=== PATIENT | male | born 1975 | race Caucasian/White ===

== ENCOUNTER 2024-09-15 12:52 | Emergency (ER) | payer BC, SELFPAY ==
--- OUTSIDE RECORDS SUMMARY | 2024-07-29 14:45 | XMS_ITS | Encounter Summary ---
Author Organization [facility] [place] [address] Care Team Providers Care Aviation Maintenance Instructor Name Role Phone Bret Corrales MD Primary Care Provider [phone] Joselo Canela MD Unavailable [phone] Reason for Referral * Biopsy Procedure (Routine) - Closed Specialty Diagnoses / Procedures Referred By Kelly cho Referred To Contact Diagnoses AK (actinic keratosis) Procedures WA DESTRUCTION PREMALIGNANT LESION 2-14 Lacey Jaramillo MD [address] [place] [address] Phone: tel: fax: Referral ID Status Reason Start Date Expiration Date Visits Re quested Visits Authorized [id number] Closed 07/29/2024 07/29/2025 1 1 * Biopsy Procedure (Routine) - Authorization Not Needed Specialty Diagnoses / Procedures Referred By Contreji t Referred To Contact Dermatology Diagnoses AK (actinic keratosis) Procedures WA DESTRUCTION PREMALIGNANT LESION 1ST WA DESTRUCTION PREMALIGNANT LESION 2-14 Lacey Jaramillo MD [address] [place] [address] Phone: tel: fax: Lacey Salamanca MD [address] [place] [address] Phone: tel: fax: Referral ID Status Reason Start Date Expiration Date Visits Requested Visits Authorized [id number] Authorization Not Needed 07/29/2024 07/29/2025 1 1 Reason for Visit * Reason Comments Follow-up * Biopsy Procedure (Routine) - Authorization Not Needed Specialty Diagnoses / Procedures Referred By Kelly cho Referred To Contact Dermatology Diagnoses AK (actinic keratosis) Procedures WA DESTRUCTION PREMALIGNANT LESION 1ST WA DESTRUCTION PREMALIGNANT LESION 2-14 EA Lacey Salamanca MD [address] [place] [address] Phone: tel: fax: Lacey Salamanca MD [address] [place] [address] Phone: tel: fax: Referral ID Status Reason Start Date Expiration Date Visits Requested Visits Authorized [id number] Authorization Not Needed 07/29/2024 07/29/2025 1 1 Encounter Details Date Type Department Care Team (Late st Contact Info) Description 07/29/2024 2:45 PM EDT Office Visit [facility] Dermatology [facility] [address] [facility] [address] [place] [address] Lacey Salamanca MD [address] [place] [address] Multiple benign melanocytic nevi (Primary Dx); AK (actinic keratosis); Actinic skin damage; History of nonmelanoma skin cancer; Lentigines; SK (seborrheic keratosis); Ramey angioma; Diffuse photodamage of skin; Screening for skin cancer Social History Tobacco Use Types Packs/Day Years Used Date Smoking Tobacco: Never Smokeless Tobacco: Former Chew Quit: 01/08/2023 Alcohol Use Standard Drinks/Week Comments Yes 0 (1 standard drink = 0.6 oz pur e alcohol) social PHQ-2 Answer Date Recorded PHQ-2 Total Score 0 06/10/2024 Sexually Active Control Partners Comments Yes Sex and Gender Information Value Date Recorded Sex Assigned at Not on file Legal Sex Male 3:02 PM EDT Gender Identity Not on file Sexual Orientation Not on file documented as of this encounter Functional Status * Is the person deaf or does he/she have serious difficulty hearing? Answer Date of Assessment Author No 06/10/2024 11:22 AM Angelina Santoro CCMA * Is the person blind or does he/she have serious difficulty seeing even when wearing glasses? Answer Date of Assessment Author No 06/10/2024 11:22 AM Angelina Santoro CCMA * Does this person have serious difficulty walking or climbing stairs? Answer Date of Assessment Author No 06/10/2024 11:22 AM Angelina Santoro CCMA * Does this person have difficulty dressing or bathing? Answer Date of Assessment Author No 06/10/2024 11:22 AM Angelina Santoro CCMA * Because of a physical, mental or emotional condition, does this person have difficulty doing errands alone such as visiting a doctor's office or shopping? Answer Date of Assessment Author No 06/10/2024 11:22 AM Angelina Santoro CCMA documented as of this encounter Mental Status * Because of a physical, mental or emotional condition, does this person have serious difficulty concentrating, remembering or making decisions? Answer Entry Date Author Yes 06/10/2024 11:22 AM Angelina Santoro CCMA documented in this encounter Progress Notes * Lacey Salamanca MD - 07/29/2024 2:45 PM EDT Chief Complaint: Chief Complaint Patient presents with ??? Follow-up History of Present Illness: Fernando Galloway is a 48 y.o. male who presents for - Requests skin check. Patient notes personal hx of skin cancer. Patient has not noted any other new, changing, symptomatic (itching, painful, bleeding) or problematic skin lesions and has practiced appropriate sun avoidance, sun screen use, and sun protective behaviors. Patient denies any other complaints or concerns. Dermatology history: Personal history of NMSC / melanoma - yes - BCC left pre auricular cheek s/p excision 04/16/20 - SCC right dorsal hand, biopsy 07/19/20 -- planned for excision October 15, ultimately declined Review of Systems: No other reported skin problems. Constitutional: no reported F/C Eyes: no reported dry eyes/Sjogren's Ears/Nose/mouth/throat: no reported oral sores, no reported dry mouth C/V: no reported chest pain Resp: no reported SOB, no reported pleurisy GI: no reported abd pain, no reported N/V : no reported pain with urination, no reported blood in urine M/S: no reported joint complaints, no reported arthralgias, no reported muscle weakness, no reported trouble brushing hair/standing up from seated position Neuro: no reported seizures, no reported PA's Psych: no reported change in mood Endo: no reported weight gain/loss Heme/lymph: no reported easy bruising, no reported swollen glands/lymph nodes. No reported hx of clotting. Allergic/Immunologic: no reported symptoms of allergy No reported Raynaud symptoms ? Medical History: Patient Active Problem List Diagnosis ??? Mood disorder ??? Knee strain, right, initial encounter ??? Right knee pain ??? Chondromalacia of right patella ??? Complex tear of medial meniscus of right knee as current injury ??? Complex tear of lateral meniscus of right knee as current injury ??? Traumatic complete tear of right rotator cuff ??? Superior glenoid labrum lesion of right shoulder ??? Biceps tendinitis of right upper extremity ??? Osteoarthritis of AC (acromioclavicular) joint ??? Subacromial bursitis of right shoulder joint ??? S/P right rotator cuff repair ??? Biceps tendonosis of right shoulder ??? Acholic stool ??? Dysphagia Medications: Current Outpatient Medications on File Prior to Visit Medication Sig Dispense Refill ??? methylPREDNISolone (MEDROL DOSPACK) 4 mg Oral Tablets, Dose Pack See package instructions (Patient not taking: Reported on 07/29/2024) 21 Tablet 0 No current facility-administered medications on file prior to visit. Allergies: No Known Allergies Family History: Family History Problem Relation Age of Onset ??? High Blood Pressure Mother ??? Cancer Mother ??? Diabetes Father ??? Anesth Problems Neg Hx Social History: Social History Socioeconomic History ??? Marital status: Spouse name: Not on file ??? Number of children: Not on file ??? Years of education: Not on file ??? Highest education level: Not on file Occupational History ??? Not on file Tobacco Use ??? Smoking status: Never ??? Smokeless tobacco: Former Types: Chew Quit date: 01/08/2023 Vaping Use ??? Vaping status: Never Used Substance and Sexual Activity ??? Alcohol use: Yes Comment: social ??? Drug use: No ??? Sexual activity: Yes Other Topics Concern ??? Not on file Social History Narrative ??? Not on file Social Drivers of Health Financial Resource Strain: Not on file Food Insecurity: Not on file Transportation Needs: Not on file Physical Activity: Not on file Stress: Not on file Social Connections: Not on file Intimate Partner Violence: Not on file Housing Stability: Not on file Exam/Assessment/Plan: Carmel Navarro MA present in room Well-appearing patient in no apparent distress. Alert and oriented x 3. Mood and affect within normal limits. A full skin examination was performed including scalp, head, eyes, ears, nose, lips, neck, chest, axillae, abdomen, back, bilateral upper extremities, hands, fingers, fingernails, buttocks, bilaterallower extremities, feet, toes, and toenails. There were no vitals taken for this visit. Multiple benign melanocytic nevi Exam: Brown, regular macules and papules with no concerning dermoscopic features on the face, trunk, and extremities No atypical features by clinical exam or dermoscopy. Reassured, appear benign on exam today. Discussed ABCDEs and monthly self skin exams. Discussed daily sun protection with SPF 30, hats, clothing, etc. I recommend over the counter broad spectrum sunscreen SPF 30 or higher. Reapply every 2 hours when outdoors. Return to clinic promptly for new or changing lesions. Actinic keratosis Actinic skin damage Exam: Erythematous scaly thin papules on the scalp x 3, L zoroastrianism x 1, L cheek x 1 Pre-malignant nature discussed with patient; also discussed there is possible risk of malignant transformation of these lesions. Discussed treatment recommended given pre-malignant nature. Discussed treatment options, including liquid nitrogen cryotherapy, topical 5-FU BID for 2 weeks, and 5-FU + Ca lcipotriene BID for 4 days if on face/scalp and 7 days if on arms, PDT. Risks of scarring, hyper/hypo-pigmentation also discussed. Patient elects to proceed with cryotherapy Site(s): scalp x 3, L zoroastrianism x 1, L cheek x 1 Procedure: Cryotherapy. Number of Lesions: 5 The lesion(s) was/were treated with liquid nitrogen x2 cycles each after verbal consent was obtained from the patient who understands that the risks include but are not limited to pain, post-inflammatory pigment changes, swelling, blister, infection, recurrence, possible need for further treatment,and scarring. Wound care instructions were provided. -The patient was advised regarding the use of sunscreens and sun protection strategies (e.g. wide brimmed hats, photo-protective clothing, avoidance of outdoor exposure between 10 AM and 4 PM). I recommend over the counter broad spectrum sunscreen SPF 30 or higher. Reapply every 2 hours when outdoors. Informed patient to return to clinic promptly for re-evaluation if no improvement, changes in size, changes in pigmentation, etc occur. Patient expressed understanding and agrees with plan History of nonmelanoma skin cancer Exam: Well-healed scar without nodularity or pigmentation or evidence of recurrence on prior sites - No evidence of recurrent disease on examination today - Reinforced photoprotective strategies including sunscreen use SPF 30 or higher, use of protectiveclothing, and sun avoidance for prevention of cutaneous malignancy and photoaging. - Counseled patient on the importance of regular self-monitoring as well as clinical skin examinations as scheduled. - The patient was also advised to call for an appointment sooner should any new, changing, or symptomatic lesions develop in the interim. Lentigines Exam: Photodistributed, knight, feathery macules on the face, trunk, and extremities Benign nature of diagnosis discussed with patient, re-assurance provided. Monitoring for changes recommended. - The patient was instructed to continue sun protection with sunscreen and protective clothing. Thepatient will apply a sunscreen with sun protection factor of at least 30 on a regular basis to exposed areas. The patient was requested to continue self examination on a regular basis. Informed patient to return to clinic promptly for re-evaluation if changes occur. Seborrheic keratoses Exam: Knight, waxy, stuck-on papules on the face, trunk, and extremities Benign nature of diagnosis discussed with patient, re-assurance provided. Monitoring for changes recommended. Informed patient to return to clinic promptly for re-evaluation if changes occur. Ramey angioma Exam: Dome shaped round red vascular papules on the face, trunk, and extremities Benign nature of diagnosis discussed with patient, re-assurance provided. Monitoring for changes recommended. Informed patient to return to clinic promptly for re-evaluation if changes occur. Diffuse photodamage Exam: Diffuse solar elastosis with rhytids and mild hypo/hyperpigmentation The patient was instructed to continue sun protection with sunscreen and protective clothing. The patient will apply a sunscreen with sun protection factor of at least 30 on a regular basis to exposed areas. The patient was requested to continue self examination on a regular basis. If the lesions change in size or shape these lesions should be evaluated in the clinic. Screening for skin cancer The patient was instructed to continue sun protection with sunscreen and protective clothing. The patient will apply a sunscreen with sun protection factor of at least 30 on a regular basis to exposed areas. I recommend over the counter broad spectrum sunscreen SPF 30 or higher. Reapply every 2 hours when outdoors. The patient was requested to continue self examination on a regular basis. Follow Up: Return in 1 year (on 07/29/2025) for FBSE. . Strict return precautions discussed. Patient understands to contact us with any interim concerns. Patient understands to contact us immediately with any changes in medical history (e.g females advised to inform clinic if trying to conceive, , or ) as this may impact medications, follow up, etc. Patient expressed understanding. ???I have reviewed this note and made changes to it as appropriate. It accurately reflects my work and decisions made during this visit.?? Lacey Salamanca M.D. documented in this encounter Miscellaneous Notes * Patient Instructions - UdLacey carcamo MD - 07/29/2024 2:45 PM EDT Images from the original note were not included. If you had a biopsy today, I recommend the following for wound care: I recommend leaving the bandage in place and avoiding showering/baths for 24 hours. Thereafter, recommend washing sites with water and soap daily and applying vaseline liberally (at least once daily)to optimize healing. We recommend AGAINST topical antibiotics like neosporin and triple antibiotic,as these can cause skin allergy and rash, which makes healing more difficult. We will call you withthe results. If you had spots frozen (treated with cryotherapy) today, I recommend daily application of vaselineto areas to help the healing process. Strongly recommend photoprotection; specifically recommend: - stay out of sun, particularly from 10 am to 4 pm - broad spectrum sunscreen with SPF30 or above (look for sunscreens with zinc oxide, titanium dioxide in them) - adults: apply 2 tablespoons to entire body to ensure thick enough layer When outside for prolonged periods, re-apply sunscreen every 2-3 hours Specific sunscreens that we love: Neutrogena Pure and Free Baby, Cerave or Vanicream sunscreens, EltaCaptora (can order this on [facility]) - broad-rimmed hat [employer] has hats with UPF (the clothing sun protection factor) - protective clothing (clothing with UV protection factor, also called UPF) [employer] is one great option; [employer] also makes UPF clothing Recommend that you perform monthly skin exams, with special attention to the ABCDEs (as illustratedbelow; reproduced from the [employer]), and, if you have a history of skin cancer(particularly melanoma), we recommend that you palpate your scars from prior melanoma excision oncemonthly. Please call us and let us know if you notice any new or changing lesions or if you feel any new bumps within scars from prior skin cancer surgeries (we will get you in to have lesions evaluated further). A - Asymmetrical shape - One half of the lesion does not match the other half. B - Border -- The edges are ragged, notched, irregular, or blurred C- Color - The color is not the same throughout or it has shades of knight, brown, black, red, white, or blue. D - Diameter - The mole is greater than 6 millimeters in size, about the size of a pencil eraser. E - Evolving - lesions that are changing should be examined Please give us a call if you notice any new or changing lesions. documented in this encounter Plan of Treatment Scheduled Orders Name Type Priority Associated Diagnoses Orde r Schedule WA DESTRUCTION PREMALIGNANT LESION 1ST WA Charge Routine AK (actinic keratosis) Ordered: 07/29/2024 WA DESTRUCTION PREMALIGNANT LESION 2-14 EA WA Charge Routine AK (actinic keratosis) Ordered: 07/29/2024 documented as of this encounter Goals Goal Patient Goal Type Associated Problems Recent Progress Patient-Stated? Author Maintain a healthy diet, exercise regularly and maintain an ideal body weight General No Cecille Jo RMA Stay Tobacco Free Lifestyle No Cecille Jo RMA documented as of this encounter Visit Diagnoses Diagnosis Multiple benign melanocytic nevi- Primary AK (actinic keratosis) Actinic keratosis Actinic skin damage Other chronic dermatitis due to solar radiation History of nonmelanoma skin cancer Personal history of other malignant neoplasm of skin Lentigines Other dyschromia SK (seborrheic keratosis) Other seborrheic keratosis Ramey angioma Nevus, non-neoplastic Diffuse photodamage of skin Other chronic dermatitis due to solar radiation Screening for skin cancer Screening for malignant neoplasm of the skin documented in this encounter Care Teams Aviation Maintenance Instructor Relationship Specialty [place] [id number] [place] [address] PCP - General 12/25/09 Joselo Canela MD [address] [address] Physician Allergy & Immunology 07/14/23 documented as of this encounter
[2024-09-15 12:59] VITALS: BP 144/90; PULSE 80; RESP 16; TEMP 36.6; O2SAT 98; BMI 30.8
[2024-09-15 13:01] VITALS: PULSE 68; O2SAT 97
--- NOTE | 2024-09-15 13:06 | ED_ITS ---
Discharge Plan Disposition Patient Disposition: Home, Self-Care Referrals Follow up/Referrals: Bret Corrales MD [Primary Care Provider, Internal Medicine] - See instructions Activity Restrictions/Add. Instructions Additional Instructions/Restrictions: Today you were evaluated in the emergency department and diagnosed with a corneal abrasion of your left eye. Please use the erythromycin ointment that you were provided. You will apply this 3 times a day to your left eye. Please follow-up within 48 hours. Return to the ED for worsening of condition. Clinical Impressions Clinical Impression: Corneal abrasion Qualifiers: Encounter type: initial encounter Laterality: left Qualified Code(s): S05.02XA - Injury of conjunctiva and corneal abrasion without foreign body, left eye, initial encounter Instructions Patient Instructions: Corneal Abrasion Print Language Print Language: Kiswahili Discharge ED Provider: Rodriguez Ayoub Adult HPI <Marta Elizabeth APRN - Last Filed: 09/15/24 13:16> General Chief complaint: Eye Problems Stated complaint: something in eye Time Seen by Provider: 09/15/24 12:56 Mode of Arrival: Ambulatory Source of Information: Patient Description of Symptoms (Recalled from ER Triage Doc. by RN): a few days ago he felt like something was in his left eye, and then today it is burning and feeling scratchy, not sure exactly what is in there. Denies any visual changes or itching. History of Present Illness HPI narrative: patient is a 48-year-old male with no significant PMH who presents to the ED for complaints of possible foreign body in his left eye. Patient states that yesterday he noted that he had some lint around his eye, did not notice anything in his eye immediately however woke up today and feels like his eye is scratchy . Related Data Allergies Allergy/AdvReac Type Severity Reaction Status Date / Time No Known Allergies Allergy Verified 09/15/24 13:05 PFSH <Marta Elizabeth APRN - Last Filed: 09/15/24 13:16> PFS Disclaimer: The information contained in this section may have been updated after the patient was seen, as this information can be updated by other users. Social History (Updated 09/15/24 @ 13:16 by Marta Elizabeth APRN) Smoking Status: Never smoker alcohol intake: never current occupational status: employed Travel in the last 8 weeks?: None Have you lived/traveled outside US in past 30 days?: No Contact w/someone who lives/traveled outside US past 30 days?: No Exposure to someone with infectious disease in past 14 days?: No Do you have a fever (greater than 100.4 F or 38 C)?: No Have you tested positive for COVID-19?: No Exposed to someone with COVID-19 in past 14 days?: No Do you have a sore throat?: No Do you have a cough?: No Do you have any weakness?: No Do you have any diarrhea?: No Are you experiencing any unusual bleeding?: No Do you have any muscle aches/pain?: No Do you have any abdominal pain?: No Are you experiencing loss of taste or smell?: No <Marta Elizabeth APRN - Last Filed: 09/15/24 13:16> ROS Obtained: Yes Systems reviewed as appropriate & no additional complaints except as documented Physical Exam <Marta Elizabeth APRN - Last Filed: 09/15/24 13:16> General General appearance: alert and in no apparent distress Head Head exam: atraumatic Eye Eye exam: Present PERRL and EOMI Chest Chest inspection: Present normal inspection Respiratory Respiratory exam: Present normal lung sounds bilaterally Cardiovascular Cardiovascular exam: Present regular rate Neurological Exam Neurological exam: Present alert, oriented X3 and normal gait Medical Decision Making <Marta Elizabeth APRN - Last Filed: 09/15/24 13:16> Medical Records Screening: Per USPSTF and CDC recommendations, given the prevalence of disease in our region, it is our hospital?s policy to screen for HIV and viral Hepatitis for all patients aged 18 and over and those with ongoing risk factors. Kenny Inquiry Pt receiving controlled substance: No Vital Signs: 09/15/24 12:59 09/15/24 13:01 09/15/24 13:17 Temperature 97.9 F 98.1 F Temperature Source Oral Pulse Rate 68 73 Pulse Rate [Right Brachial] 80 Respiratory Rate 16 18 Blood Pressure 127/86 Blood Pressure [Right Arm] 144/90 H Blood Pressure Mean [Right Arm] 108 Blood Pressure Source [Right Arm] Automatic Cuff Blood Pressure Position [Right Arm] Sitting 02 Sat by Pulse Oximetry 98 97 Oxygen Delivery Method Room Air Room Air Room Air Orders (Tests/Meds): ED MEDICATIONS Discontinued Medications Generic Name Dose Route Start Last Admin Trade Name Freq PRWally Reason Stop Dose Admin Erythromycin 0.25 gm 09/15/24 13:11 09/15/24 13:14 Erythromycin Base 3.5 Gm Oint...G. OP 09/15/24 13:12 0.25 gm ONCE ONE Administration Eye Irrigation Solution 120 ml 09/15/24 13:09 09/15/24 13:15 Eye Wash Irrigation Soln 118ml Bottle OP 09/15/24 13:10 120 ml ONCE ONE Administration Fluorescein Sodium 1 mg 09/15/24 13:07 09/15/24 13:12 Fluorescein Sodium 1mg Strip OP 09/15/24 13:08 1 mg ONCE ONE Administration Tetracaine HCl 1 ml 09/15/24 13:08 09/15/24 13:11 Tetracaine 0.5% Opth Yessica 15ml OP 09/15/24 13:09 1 ml ONCE ONE Administration Medical Decision Narrative: In summary, patient is a 48-year-old male with no significant PMH who presents to the ED for complaints of possible foreign body in his left eye. Patient states that yesterday he noted that he had some lint around his eye, did not notice anything in his eye immediately however woke up today and feels like his eye is scratchy . He states that he does not have any visual changes or headache. Denies any previous injuries to the left eye. Denies fever, chills, headache, posterior neck pain, visual changes, decreased vision. Upon initial evaluation patient is alert, oriented and cooperative. Lira lamp procedure performed on the left eye with tetracaine, fluorescein and black light, 2 corneal abrasions noted 1 on the left outer corner and 1 on the right upper corner. Eye was rinsed with the eyewash until clear. Patient states that his eye is feeling much better. I discussed with him that he will need to use the erythromycin ointment that I provided him in the ED 3 times a day over the next week. He verbalized understanding. We discussed need for follow-up and return precautions to the ED. <Rodriguez Ayoub MD - Last Filed: 09/15/24 15:24> Vital Signs: 09/15/24 12:59 09/15/24 13:01 09/15/24 13:17 Temperature 97.9 F 98.1 F Temperature Source Oral Pulse Rate 68 73 Pulse Rate [Right Brachial] 80 Respiratory Rate 16 18 Blood Pressure 127/86 Blood Pressure [Right Arm] 144/90 H Blood Pressure Mean [Right Arm] 108 Blood Pressure Source [Right Arm] Automatic Cuff Blood Pressure Position [Right Arm] Sitting 02 Sat by Pulse Oximetry 98 97 Oxygen Delivery Method Room Air Room Air Room Air Orders (Tests/Meds): ED MEDICATIONS Discontinued Medications Generic Name Dose Route Start Last Admin Trade Name Jessenia PRN Reason Stop Dose Admin Erythromycin 0.25 gm 09/15/24 13:11 09/15/24 13:14 Erythromycin Base 3.5 Gm Oint...G. OP 09/15/24 13:12 0.25 gm ONCE ONE Administration Eye Irrigation Solution 120 ml 09/15/24 13:09 09/15/24 13:15 Eye Wash Irrigation Soln 118ml Bottle OP 09/15/24 13:10 120 ml ONCE ONE Administration Fluorescein Sodium 1 mg 09/15/24 13:07 09/15/24 13:12 Fluorescein Sodium 1mg Strip OP 09/15/24 13:08 1 mg ONCE ONE Administration Tetracaine HCl 1 ml 09/15/24 13:08 09/15/24 13:11 Tetracaine 0.5% Opth Yessica 15ml OP 09/15/24 13:09 1 ml ONCE ONE Administration Medical Decision Narrative: In summary, patient is a 48-year-old male with no significant PMH who presents to the ED for complaints of possible foreign body in his left eye. Patient states that yesterday he noted that he had some lint around his eye, did not notice anything in his eye immediately however woke up today and feels like his eye is scratchy . He states that he does not have any visual changes or headache. Denies any previous injuries to the left eye. Denies fever, chills, headache, posterior neck pain, visual changes, decreased vision. Upon initial evaluation patient is alert, oriented and cooperative. Lira lamp procedure performed on the left eye with tetracaine, fluorescein and black light, 2 corneal abrasions noted 1 on the left outer corner and 1 on the right upper corner. Eye was rinsed with the eyewash until clear. Patient states that his eye is feeling much better. I discussed with him that he will need to use the erythromycin ointment that I provided him in the ED 3 times a day over the next week. He verbalized understanding. We discussed need for follow-up and return precautions to the ED. I was consulted by the TERESA, and we discussed the complexity of the problems being addressed. I approve the treatment and management plan for this patient's care in the emergency department, thus performing a substantive portion of the medical decision making. Rodriguez Ayoub MD Critical Care <Marta Elizabeth, PIPE RECOVERY SPECIALIST - Last Filed: 09/15/24 13:16> Critical Care Time Critical Care Time: No
[2024-09-15] MEDS: TETRACAINE 0.5% OPTH SOL 15ML OP (13:11)
[2024-09-15] MEDS: FLUORESCEIN SODIUM 1MG STRIP 1 MG OP (13:12)
[2024-09-15] MEDS: ERYTHROMYCIN BASE 3.5 GM OINT...G. OP (13:14)
[2024-09-15] MEDS: EYE WASH IRRIGATION SOLN 118ML BOTTLE 120 ML OP (13:15)
--- OUTSIDE RECORDS SUMMARY | 2024-09-15 13:16 | XMS_ITS | Clinical Summary ---
Author Organization [facility] Address [address] [place] [address] Phone Care Team Providers Care Value Stream Leader Name Role Phone Bret Corrales MD Primary Care Provider [phone] Joselo Canela MD Unavailable [phone] Allergies No known active allergies Medications methylPREDNISol one (MEDROL DOSPACK) 4 mg Oral Tablets, Dose Pack See package instructions 21 Tablet 5 Active Additional Information Patient not taking.Reason: Therapy Completed, Reported on 07/29/2024 Active Problems Problem Noted Date Diagnosed Date Acholic stool 07/06/2023 Assessment & Plan (07/06/2023 9:45 AM EDT): No right upper quadrant pain however given his acholic stools, will start with right upper quadrant ultrasound to rule out gallbladder pathology Dysphagia 07/06/2023 Assessment & Plan (07/06/2023 9:45 AM EDT): New onset over the last several months. Improved with pantoprazole pointing to possible worsening acid reflux with recent weight gain and increase in alcohol use. May represent globus sensation though given some reports of food getting stuck, we will proceed with EGD to rule out structural component. Asked to hold PPI 2 weeks prior to procedure. S/P right rotator cuff repair 05/01/2022 Biceps tendonosis of right shoulder 05/01/2022 Traumatic complete tear of right rotator cuff Overview (03/28/2022): Added automatically from request for surgery [id number] Superior glenoid labrum lesion of right shoulder 03/28/2022 Overview (03/28/2022): Added automatically from request for surgery [id number] Biceps tendinitis of right upper extremity 03/28 Overview (03/28/2022): Added automatically from request for surgery [id number] Osteoarthritis of AC (acromioclavicular) joint 0 03/28/2022 Overview (03/28/2022): Added automatically from request for surgery [id number] Subacromial bursitis of right shoulder joint Overview (03/28/2022): Added automatically from request for surgery [id number] Complex tear of medial menis cus of right knee as current injury 11/22/2021 Overview (11/22/2021): Added automatically from request for surgery [id number] Complex tear of lateral meni scus of right knee as current injury 11/22/2021 Overview (11/22/2021): Added automatically from request for surgery [id number] Knee strain, right, initial encounter 11/06/2021 Right knee pain 11/06/2021 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 [place] [address] Bret Corrales MD Appointment Needed (eyelash in eye is irritated cant get it out x last night feels like something in his eye and can't get it out nobal ) 07/29/2024 2:45 PM EDT Office Visit [facility] Dermatology [facility] [address] [facility] [address] [place] [address] Lacey Salamanca MD Multiple benign melanocytic nevi (Primary Dx); AK (actinic keratosis); Actinic skin damage; History of nonmelanoma skin cancer; Lentigines; SK (seborrheic keratosis); Ramey angioma; Diffuse photodamage of skin; Screening for skin cancer 07/28/2024 Travel from Last 3 Months Immunizations Immunization Administration Dates Next Due DTaP, Unspecified Formulation 11/29/1979 ,06/12/1975,02/13/1975,1974 Influenza Vaccine Quadrivalent PF 02/07/2020,,12/03/2015 Influenza Vaccine, Unspecifi ed Formulation 01/05/2018 Influenza, Injectable, MDCK, PF, Quadrivalent 12/29/2017 MMR 09/20/1979 Polio, Unspecified Formulation 0,01/11/1979,08/21/1975,1975 Tdap 05/10/2021 Surgical History Surgery Date Site/Laterality Comments VASECTOMY ANUS SURGERY KNEE ARTHROSCOPY 12/26/2021 Knee/Right Right knee arthroscopic partial medial and lateral meniscectomy with arthroscopic chondroplasty; Surgeon: Harley Cabrera MD; Location: [facility]; Service: Orthopedics SKIN CANCER EXCISION COLONOSCOPY 07/14/2021 - 08/13/2021 ROTATOR CUFF REPAIR 04/24/2022 Shoulder/Right Right shoulder arthroscopic rotator cuff repair, subacromial decompression with acromioplasty, labral debridement, open biceps tenodesis, open distal clavicle resection; Surgeon: Harley Cabrera MD; Location: [facility]; Service: Orthopedics Medical devices from this surgery are in the Medical Devices section. BICEPS TENODESIS 04/24/2022 Arm/Elbow/Right .; Surgeon: Harley Cabrera MD; Location: [facility]; Service: Orthopedics Medical devices from this surgery are in the Medical Devices section. SHOULDER ARTHROTOMY 04/24/2022 Shoulder/Right .; Surgeon: Harley Cabrera MD; Location: [facility]; Service: Orthopedics Medical devices from this surgery are in the Medical Devices section. SHOULDER ARTHROSCOPY 04/24/2022 Shoulder/Right .; Surgeon: Harley Cabrera MD; Location: [facility]; Service: Orthopedics Medical devices from this surgery are in the Medical Devices section. Medical History Medical History Date Comments Mood disorder 01/26/2017 Basal cell carcinoma (BCC) i n situ of skin removed Chondromalacia of right patella 11/06/2021 surgery done Heartburn no meds SARS-CoV-2 positive 03/2021 Heart murmur unsure Shoulder injury 02/02/2022 injured right sh oulder when he fell Wears hearing aid in both ears Family History Medical History Relation Name Comments Diabetes Father Cancer Mother High Blood Pressure Mother Anesth Problems Neg Hx Relation Name Status Comments Father Alive Mother Alive Social History Tobacco Use Types Packs/Day Years Used Date Smoking Tobacco: Never Smokeless Tobacco: Former Chew Quit: 01/08/2023 Tobacco Cessation:Counseling Given: Not Answered Alcohol Use Standard Drinks/Week Comments Yes 0 (1 standard drink = 0.6 oz pur e alcohol) social PHQ-2 Answer Date Recorded PHQ-2 Total Score 0 06/10/2024 Sexually Active Control Partners Comments Yes Sex and Gender Information Value Date Recorded Sex Assigned at Not on file Legal Sex Male 3:02 PM EDT Gender Identity Not on file Sexual Orientation Not on file Obstetrics History Last Filed Vital Signs Vital Sign Reading Time Taken Comments Blood Pressure 116/80 06/10/2024 11:22 AM EDT Pulse 84 06/10/2024 11:22 AM EDT Temperature 36.7 C (98 F) 06/10/2024 11:22 AM EDT Respiratory Rate 20 09/03/2023 12:48 AM EDT Oxygen Saturation 94% 06/10/2024 11:22 AM EDT Inhaled Oxygen Concentration - - Weight 100.2 kg (221 lb) 06/10/2024 11:22 AM EDT Height 180.3 cm (5' 11 ) 06/10/2024 11:22 AM EDT Body Mass Index 30.82 06/10/2024 11:22 AM EDT Plan of Treatment Health Maintenance Due Date Last Done Comments Hepatitis B Vaccine (1 of 3 - 19+ 3-dose series) 1993 Cologuard 10/14/2019 FIT 10/14/2019 Sigmoidoscopy 10/14/2019 Virtual Colonography 10/14/2019 COVID-19 Vaccine (1 - 2023- season) 2023 Annual Wellness Exam 01/30/2024 01/29/2023 Influenza Vaccine (#1) 2024 0, 02/07/2020, 01/05/2018, Additional history exists DTaP/TDaP/Td (6 - Td or Tdap) 05/10/2031 05/10/2021, 11/29/1979, 06/12/1975, Additional history exists Colon Cancer Screening 07/09/2031 Colonoscopy 07/09/2031 07/08/2021 Meningococcal B Vaccine Aged Out No l onger eligible based on patient's age to complete this topic Pneumococcal Vaccine 0-49 Aged Out No longer eligible based on patient's age to complete this topic Goals Goal Patient Goal Type Associated Problems Recent Progress Patient-Stated? Author Maintain a healthy diet, exercise regularly and maintain an ideal body weight General No Cecille Jo RMA Stay Tobacco Free Lifestyle No Cecille Jo RMA Medical Devices Implanted Type Area Freezer Operator Device Identifier Shelf Expiration Date Model / Serial / Lot Healicoil Regenesorb Suture [place] 5.5mm W/3 Ultrabraid Sutures - [id number] Implanted:Qty : 1 on 04/24/2022 by Harley Cabrera MD at [facility] Right: Shoulder [employer]:ORTHO 03/18/2025 [id number] / / [id number] [place] Suture Healicoil Regenesorb 5.5mm Knotless - [id number] Implanted:Qty : 2 on 04/24/2022 by Harley Cabrera MD at [facility] Right: Shoulder [employer]:ENDO [id number] 01/25/2025 [id number] / / [id number] Procedures Procedure Name Priority Date/Time Associated Diagnosis Comments GMED COLONOSCOPY Routine 07/08/2021 3:01 PM EDT Screening for colon cancer from Last 3 Months or Most Recently Relevant to Health Maintenance Results * GMED COLONOSCOPY (07/08/2021 3:01 PM EDT) 07/08/2021 3:01 PM EDT Impressions [facility] - 07/08/2021 3:25 PM EDT Plan: This section is an excerpt of the full report. us Lopez Pacheco MD GI PROCEDURE ORDERABLES Fin al Result [facility] [address] [place] [address] from Last 3 Months or Most Recently Relevant to Health Maintenance Insurance ANTH PPO ANTHEM PPO ANTHEM PPO ANTHEM PPO ANTHEM PPO Member Subscriber Plan / Payer (Ef fective 2018-Present) Name:Oli Muñoz Relation to Subscriber:Self Name:Oli Muñoz Payer ID:[id number] (NAIC) Type:Not on file Address: [id number] [employer] on file [facility] [address] Care Teams Value Stream Leader Relationship Specialty [place] [address] [place] [address] PCP - General 12/25/09 Joselo Canela MD [address] [address] Physician Allergy & Immunology 07/14/23
--- OUTSIDE RECORDS SUMMARY | 2024-09-15 13:16 | XMS_ITS | Encounter Summary ---
Author Organization [facility] [place] [place] [address] Care Team Providers Care Heavy Equipment Service Manager Name Role Phone Bret Corrales MD Primary Care Provider [phone] Joselo Canela MD Unavailable [phone] Encounter Details Date Type Department Care Team (Latest Contact Info) Description 07/28/2024 Travel Social History Tobacco Use Types Packs/Day Years [...] Angelina Santoro CCMA documented in this encounter Plan of Treatment Not on file documented as of this encounter Goals Goal Patient Goal Type Associated Problems Recent Progress Patient-Stated? Author Maintain a healthy diet, exercise regularly and maintain an ideal body weight General No Cecille Jo RMA Stay Tobacco Free Lifestyle No Cecille Jo RMA documented as of this encounter Visit Diagnoses Not on filedocumented in this encounter Care Teams Heavy Equipment Service Manager Relationship Specialty [place] [address] [place] [address] PCP - General 12/25/09 Joselo Canela MD [address] [address] Physician Allergy & Immunology 07/14/23 documented as of this encounter
--- OUTSIDE RECORDS SUMMARY | 2024-09-15 13:16 | XMS_ITS | Encounter Summary ---
Author Organization [facility] [place] [address] Care Team Providers Care Flight Operation Coordinator Name Role Phone Bret Corrales MD Primary Care Provider [phone] Joselo Canela MD Unavailable [phone] Reason for Visit * Reason Onset Date Comments Appointment Needed 08/25/2024 eyelash in ey e is irritated cant get it out x last night feels like something in his eye and can't get it out nobal Encounter Details Date Type Department Care Team (Late st Contact Info) Description 08/25/2024 Telephone SEP [facility] [address] [place] [address] [place] [address] [place] [address] Appointment Needed (eyelash in eye is irritated cant get it out x last night feels like something in his eye and can't get it out nobal ) Social History Tobacco Use Types Packs/Day Years [...] of Assessment Author No 06/10/2024 11:22 AM EDT Angelina Mendiola CCMA * Is the person blind or does he/she have serious difficulty seeing even when wearing glasses? Answer Date of Assessment Author No 06/10/2024 11:22 AM EDT Angelina Mendiola CCMA * Does this person have serious [...] of Assessment Author No 06/10/2024 11:22 AM KORINAT Angelina Mendiola CCMA documented as of this encounter Mental Status * Because of a physical, mental or emotional condition, does this person have serious difficulty concentrating, remembering or making decisions? Answer Entry Date Author Yes 06/10/2024 11:22 AM Angelina Santoro CCMA documented in this encounter Miscellaneous Notes * Telephone Encounter - Kirsten Martinez - 08/25/2024 8:52 AM EDT Nothing avail at the moment. On cancellation list for today. Patient states he feels as if whateverit is, its in a comfortable place for now. * Telephone Encounter - Natividad Geiger, Clerical Staff - 08/25/2024 8:12 AM EDT Select the most appropriate reason for this telephone message: Appointment Needed Appointment Requested By: Patient Provider Preference: Any Available Type of Appt Needed: Acute Detailed Reason for Appt: eyelash or something in eye is irritated cant get it out x last night feels like something in his eye and can't get it out nobal Requested Timeframe: Today Reason Scheduling Assistance is Needed: -no appts available with provider preference in time frame needed Return Method of Communication: Phone Call Additional Information: N/A documented in this encounter Plan of Treatment [...] on filedocumented in this encounter Care Teams Flight Operation Coordinator Relationship Specialty [place] [address] [place] [address] PCP - General 12/25/09 Joselo Canela MD [address] [address] Physician Allergy & Immunology 07/14/23 documented as of this encounter
--- OUTSIDE RECORDS SUMMARY | 2024-09-15 13:16 | XMS_ITS | Clinical Summary ---
Author Organization [facility] Address [address] [place] [address] Care Team Providers Care In Home Tutor Name Role Phone Bret Corrales MD Primary Care Provider + [phone] Allergies No known active allergies Medications albuterol (VENTOLIN/PROAI R/PROVENTIL HFA) 90 mcg/actuation HFA Aerosol Inhaler Take 2 Puffs by inhalation every 4 hours as needed for Wheezing. 4 Active fluorouraciL (EFUDEX) 5 % cream Apply a pea sized amount to entire red patch on forehead nightly for 30 nights. Skin will become red and irritated. 4 Active methocarbamoL (ROBAXIN) 500 mg tablet Take 500 mg by mouth 4 times daily as needed (with meals and at bedtime) for Other (enter comment) (muscle spasms). 3 Active pantoprazole (PROTONIX) 40 mg Tablet, Delayed Release (E.C.) Take 40 mg by mouth daily. 4 Active triamcinolone (KENALOG) 0.1 % cream Apply a small amount of medication to a Q-tip and then use on external ear skin once daily for up to 2 weeks, then stop. 4 Active Social History Tobacco Use Types Packs/Day Years Used Date Smoking Tobacco: Never Assessed Sex and Gender Information Value Date Recorded Sex Assigned at Not on file Legal Sex Male 6:26 PM EST Gender Identity Not on file Sexual Orientation Not on file Plan of Treatment Health Maintenance Due Date Last Done Comments Hina 1974 Colonoscopy 1974 Colorectal Cancer Screening 1974 FIT 1974 Lipid Screening 1992 COVID-19 Vaccine (2023-2 5 season) 2023 Depression Screening 03/16/2024 Influenza Vaccination (#1) 11/14/202402/06, 01/05/2018, 12/29/2017, Additional history exists Tetanus Vaccination (Every 1 0 Years) 05/10/2031 05/10/2021 Insurance [place] [facility] Teams In Home Tutor Relationship Specialty [place] [id number] [place] [id number] PCP - General Internal Medicine 02/11/23
[2024-09-15 13:17] VITALS: BP 127/86; PULSE 73; RESP 18; TEMP 36.7; O2SAT 97
== END 2024-09-15 13:18 | disposition home or self-care (01) ==
PROVIDERS: Emergency Provider Student in an Organized Health Care Education/Training Program; PCP Internal Medicine
DX: S05.02XA Injury of conjunctiva and corneal abrasion without foreign body, left eye, initial encounter (principal)
CPT/HCPCS: 99283